=== PATIENT | male | born 1955 | race Caucasian/White ===

== ENCOUNTER 2016-04-18 01:07 | Inpatient (IN) | payer OTHER ==
[2016-04-18 03:44] LABS: HEMOGLOBIN 13.8 gm/dl (14.0-17.5); RED BLOOD COUNT 4.85 M/UL (4.20-5.50); WHITE BLOOD COUNT 20.9 K/UL (4.5-11.0)
[2016-04-18 04:10] LABS: BUN/CREATININE RATIO 22 (0-10)
[2016-04-18] MEDS ORDERED: ASPIRIN81 MG PO (09:28)
[2016-04-18] MEDS ORDERED: CLARITIN 10MG T10 MG PO (09:29)
[2016-04-18] MEDS ORDERED: LORTAB 7.5-3251 EACH PO (09:30)
[2016-04-18] MEDS ORDERED: VALACYCLOVIR1000 MG PO (09:32)
[2016-04-18] MEDS ORDERED: BENADRYL 25MG C25 MG PO (09:33)
[2016-04-18] MEDS ORDERED: METOPROLOL SUCC25 MG PO (09:36)
[2016-04-18] MEDS ORDERED: LIPITOR TAB 1010 MG PO (09:37)
[2016-04-18] MEDS ORDERED: COMBIVENT0.074 GM/I INH ×2 (09:37→09:39)
[2016-04-18] MEDS ORDERED: VENTOLIN/PROVE0.5 ML INH (09:38)
== END 2016-04-18 12:05 | disposition left against medical advice (07) | DRG 189 ==
LOC: PROG CARE 01:07 → CCU 02:05
PROVIDERS: ADMIT Internal Medicine
DX: J96.22 Acute and chronic respiratory failure with hypercapnia (principal); J18.9 Pneumonia, unspecified organism; J44.0 Chronic obstructive pulmonary disease with (acute) lower respiratory infection; J44.1 Chronic obstructive pulmonary disease with (acute) exacerbation; E87.2 Acidosis; J96.21 Acute and chronic respiratory failure with hypoxia; I10 Essential (primary) hypertension; L40.9 Psoriasis, unspecified; Z99.81 Dependence on supplemental oxygen; Z87.891 Personal history of nicotine dependence; Z84.89 Family history of other specified conditions; Z80.9 Family history of malignant neoplasm, unspecified
CPT/HCPCS: 36415; 36600; 80048; 82803; 85027; 87040; 94664; J1956; J2920; J7050